=== PATIENT | female | born 1965 | race Caucasian/White ===

== ENCOUNTER 2020-05-23 11:45 | Emergency (ER) | payer BC, SELFPAY ==
[2020-05-23 11:51] VITALS: BP 152/95; PULSE 83; RESP 18; TEMP 36.9; O2SAT 94; BMI 28.5
--- NOTE | 2020-05-23 12:05 | CTR_ITS ---
PROCEDURE INFORMATION: Exam: CT Abdomen And Pelvis With Contrast Exam date and time: 05/23/2020 12:50 PM Age: 54 years old Clinical indication: Abdominal pain; Localized; Right lower quadrant (rlq); Prior surgery; Surgery date: 6+ months; Surgery type: Lymph node, ov cyst, appy; Patient HX: C/O rlq abd pain w HX of ibs and sbo TECHNIQUE: Imaging protocol: Computed tomography of the abdomen and pelvis with intravenous contrast. Radiation optimization: All CT scans at this facility use at least one of these dose optimization techniques: automated exposure control; mA and/or kV adjustment per patient size (includes targeted exams where dose is matched to clinical indication); or iterative reconstruction. Contrast material: OMNI 300; Contrast volume: 95 ml; Contrast route: INTRAVENOUS (IV); COMPARISON: CT abdomen pelvis w con* [id number] 02/27/2018 2:30 PM RADIATION DOSE METRICS: Total DLP (mGy-cm): 1060.08 FINDINGS: Liver: No mass. Gallbladder and bile ducts: Unremarkable. No ductal dilation. Pancreas: Normal. No ductal dilation. Spleen: Normal. No splenomegaly. Adrenals: Normal. No mass. Kidneys and ureters: Normal. No hydronephrosis. Stomach and bowel: No acute findings. No obstruction. No mucosal thickening. Appendix: Appendectomy. Intraperitoneal space: Unremarkable. No free air. No significant fluid collection. Vasculature: No abdominal aortic aneurysm. Lymph nodes: No significant adenopathy. Bladder: Unremarkable as visualized. Reproductive: Unremarkable as visualized. Bones/joints: No acute findings. Soft tissues: Unremarkable. CT/CT abdomen pelvis w con* [id number] IMPRESSION: No acute findings. Radiation Dose CTDIVOL = (mGy): DLP = 1060.08 (mGy-cm)
--- NOTE | 2020-05-23 12:19 | W.ED.ABDPA2 ---
HPI - Abdominal Pain General: Chief Complaint: Abdominal Pain Stated Complaint: ABD PAIN/SENT FROM [facility] Time Seen by Provider: 05/23/20 11:59 Source: patient Mode of arrival: ambulatory Limitations: no limitations History of Present Illness: HPI narrative: 54-year-old female whose had a small bowel obstruction the past states she has had some abdominal pain over the last day. She states she has had minimal bowel movements as well as concerned she may have another small bowel obstruction. States the pain is minimal in nature and rates it a 2 out of 10. Denies any fevers. MD elicited complaint: abdominal pain Onset (ago): day(s) Location: Diffuse Severity: mild Quality: cramping Radiation: none Exacerbating factors: nothing Relieving factors: nothing Associated Symptoms: Denies chills, dysuria and fever(s) Review of Systems Const: Denies: fever(s), chills, body aches or change in appetite Eyes: Denies: blurry vision or eye discomfort ENMT: Denies: throat pain or dental pain Card: Denies: chest pain Resp: Denies: dyspnea GI: Reports: abdominal pain : Denies: dysuria Musc: Denies: neck pain or back pain Skin/Breast: Denies: rash Neuro: Denies: headache(s) Psych: Denies: depression Isael/Lymph: Denies: easy bruising All/Imm: Denies: urticaria PFSH ED PFSH: Social History Smoking and tobacco status: never smoked Alcohol intake: never Substance/Drug Use: never Physical Exam Const: COMMON NORMALS: no acute distress, patient oriented x3 and healthy appearing HENMT: COMMON NORMALS: normocephalic and atraumatic HEAD & SCALP: normocephalic and atraumatic Eye: COMMON NORMALS: Equal, round and reactive pupils present and EOMs intact bilaterally PUPIL: Yes Equal, round and reactive pupils present Neck/C-Spine: COMMON NORMALS: full ROM and supple Chest: COMMONS NORMALS: normal inspection of the chest and normal palpation of entire chest wall Resp: COMMON NORMALS: normal respiratory effort, No retractions, No use of accessory muscles and clear to auscultation bilaterally AUSCULTATION: clear to auscultation bilaterally Cardio: COMMON NORMALS: regular rate, regular rhythm and No murmurs present (Cardio) RATE: regular rate RHYTHM: regular rhythm GI: COMMON NORMALS: Normal to inspection, nondistended, normoactive bowel sounds present, Soft to palpation, non-tender and no masses PALPATION: Yes Soft to palpation Extremity: COMMON NORMALS: normal to inspection and full ROM Neuro: COMMON NORMALS: patient oriented x3, moves all extremities and no focal motor deficits Psych: COMMON NORMALS: mental status grossly normal, Normal thought process present and cooperative THOUGHT PROCESS: Normal thought process present Skin: COMMON NORMALS: no rashes or lesions noted and no wounds GENERAL SKIN EXAM: no rashes or lesions noted Course Vital Signs: Vital signs: Vital Signs Temperature 98.5 F 05/23/20 11:51 Pulse Rate 83 05/23/20 11:51 Respiratory Rate 18 05/23/20 12:33 Blood Pressure 152/95 05/23/20 11:51 Pulse Oximetry 94 05/23/20 11:51 MDM - Abdominal Pain MDM Narrative: Medical decision making narrative: Patient presents here with abdominal pain since resolved. Likely bowel pain is CT scan and lab works all normal. Will place on [place] and she is to follow-up with primary care doctor in 3 to 5 days return if worsening. Lab Data: Labs: Lab Results 05/23/20 05/23/20 05/23/20 Range/Units 12:00 12:20 12:45 WBC 5.4 (4.0-10.0) 10^3/ uL RBC 5.03 (4.1-5.3) 10^6/u L Hgb 15.0 (11.5-15.3) g/dL Hct 47.0 (37.0-47.0) % MCV 93.4 (81-99) fL MCH 29.8 (28.0-34.0) pg MCHC 31.9 (30.0-36.0) g/dL RDW 11.9 L (12.1-15.1) % Plt Count 231 (130-400) 10^3/c mm MPV 9.5 (7.4-10.4) fL Neut % (Auto) 68.1 % Lymph % (Auto) 23.9 % [place] % (Auto) 6.5 % Eos % (Auto) 0.7 % Baso % (Auto) 0.6 % Neut # (Auto) 3.65 (1.8-7.7) 10^3/u L Lymph # (Auto) 1.3 (0.8-4.8) 10^3/u L [place] # (Auto) 0.4 (0.2-0.9) 10^3/u L Eos # (Auto) 0.0 (0.0-0.8) 10^3/u L Baso # (Auto) 0.0 (0.0-0.1) 10^3/u L Nucleated RBC % (a uto) 0 % Nucleated RBCs # 0.0 /100WBC Sodium 138 (136-145) mmol/L Potassium 4.0 (3.5-5.1) mmol/L Chloride 102 (98-107) mmol/L Carbon Dioxide 25 (22-29) mmol/L Anion Gap 15.0 (5-19) BUN 13 (6-20) mg/dL Creatinine 0.8 (0.5-0.9) mg/dL GFR Calculation 74.5 L (90-130) mL/min Glucose 108 (65-115) mg/dL Calculated Osmolal ity 283 L (285-295) mOsm/k g Calcium 10.0 (8.5-10.5) mg/dL Total Bilirubin 0.3 (0.15-1.2) mg/dL AST 18 (0-32) U/L ALT 14 (0-33) U/L Alkaline Phosphata se 68 (35-105) IU/L Total Protein 7.5 (6.6-8.7) g/dL Albumin 4.6 (3.5-5.2) g/dL Globulin 2.9 (1.3-4.6) g/dL Lipase 25 (13-60) U/L Urine Color Straw (Yellow) Urine Appearance Clear (CLEAR) Urine pH 6 (5-7) Ur Specific Gravit y 1.010 (1.005-1.030) Urine Protein Neg (Negative) Urine Glucose (UA) Norm (Normal) Urine Ketones Negative (Negative) Urine Blood Neg (Negative) Urine Nitrate Negative (Negative) Urine Bilirubin Neg (NEGATIVE) Urine Urobilinogen Norm (Negative) mg/dL Ur Leukocyte Roopa ase Negative (Negative) Imaging Data ^: CT Abd/Pel: Radiologist's impression: [facility] [address] [address] [address] Scan Report Signed Patient: Rehana Valentine Unit #: [id number] : 1965 Age/Sex: 54 / F ADM Date: 05/23/20 Loc: ER Room/Bed: Attending Dr: Ordering Provider/Ordering MD: Jalil Child MD Date of Service: 05/23/20 Procedure(s): CT abdomen pelvis w con* [id number] Accession Number(s): [id number] Report Number: [id number] PROCEDURE INFORMATION: Exam: CT Abdomen And Pelvis With Contrast Exam date and time: 05/23/2020 12:50 PM Age: 54 years old Clinical indication: Abdominal pain; Localized; Right lower quadrant (rlq); Prior surgery; Surgery date: 6+ months; Surgery type: Lymph node, ov cyst, appy; Patient HX: C/O rlq abd pain w HX of ibs and sbo TECHNIQUE: Imaging protocol: Computed tomography of the abdomen and pelvis with intravenous contrast. Radiation optimization: All CT scans at this facility use at least one of these dose optimization techniques: automated exposure control; mA and/or kV adjustment per patient size (includes targeted exams where dose is matched to clinical indication); or iterative reconstruction. Contrast material: OMNI 300; Contrast volume: 95 ml; Contrast route: INTRAVENOUS (IV); COMPARISON: CT abdomen pelvis w con* [id number] 02/27/2018 2:30 PM RADIATION DOSE METRICS: Total DLP (mGy-cm): 1060.08 FINDINGS: Liver: No mass. Gallbladder and bile ducts: Unremarkable. No ductal dilation. Pancreas: Normal. No ductal dilation. Spleen: Normal. No splenomegaly. Adrenals: Normal. No mass. Kidneys and ureters: Normal. No hydronephrosis. Stomach and bowel: No acute findings. No obstruction. No mucosal thickening. Appendix: Appendectomy. Intraperitoneal space: Unremarkable. No free air. No significant fluid collection. Vasculature: No abdominal aortic aneurysm. Lymph nodes: No significant adenopathy. Bladder: Unremarkable as visualized. Reproductive: Unremarkable as visualized. Bones/joints: No acute findings. Soft tissues: Unremarkable. CT/CT abdomen pelvis w con* [id number] IMPRESSION: No acute findings. Discharge Plan Discharge Patient Disposition: Home, Self-Care Clinical Impression: Abdominal pain Qualifiers: Abdominal location: generalized Qualified Code(s): R10.84 - Generalized abdominal pain Condition: Stable Prescriptions: New dicyclomine 20 mg tablet 20 mg PO TID PRN (Reason: abdominal pain) Qty: 20 RF: 0 No Action losartan 25 mg tablet 12.5 mg PO DAILY RF: 0 omeprazole 20 mg capsule,delayed release(DR/EC) 20 mg PO DAILY RF: 0 Linzess 145 mcg capsule 145 mcg PO DAILY RF: 0 Discharge Orders: Discharge Order (Routine); Ordered 05/23/20 Ordered By: Jalil Child Referrals: Caio Lee DO [Family Provider] - 1-3 days Discharge Diet: Advance as tolerated Discharge Activity: Resume usual activity Patient Instructions: Abdominal Pain (ED) Coding Level of Care Code ED Crm Specialist for Luis Armandog Fwd Exam Comprehensive
[2020-05-23 12:26] LABS: Basophils % 0.6 %; Eosinophils % 0.7 %; Lymphocytes # 1.3 10^3/uL (0.8-4.8); Lymphocytes % 23.9 %; Mean Corpuscular HGB Conc 31.9 g/dL (30.0-36.0); Mean Corpuscular Hemoglobin 29.8 pg (28.0-34.0); Mean Corpuscular Volume 93.4 fL (81-99); Mean Platelet Volume 9.5 fL (7.4-10.4); Monocytes # 0.4 10^3/uL (0.2-0.9); Monocytes % 6.5 %; Neutrophils # 3.65 10^3/uL (1.8-7.7); Neutrophils % 68.1 %; Nucleated Red Blood Cells % 0 %; Platelet Count 231 10^3/cmm (130-400); Red Blood Count 5.03 10^6/uL (4.1-5.3); Red Cell Distribution Width 11.9 % (12.1-15.1); White Blood Count 5.4 10^3/uL (4.0-10.0)
[2020-05-23 12:33] VITALS: RESP 18
[2020-05-23 12:38] LABS: Add Urine Microscopic? NO; Urine Appearance Clear (CLEAR); Urine Color Straw (Yellow)
[2020-05-23 12:39] LABS: Bilirubin Urine Neg (NEGATIVE); Blood Urine Neg (Negative); Glucose Urine UA Norm (Normal); Ketones Urine Negative (Negative); Leukocyte Esterase Urine Negative (Negative); Nitrate Urine Negative (Negative); Protein Urine Neg (Negative); Urobilinogen Urine Norm (Negative); pH Urine 6 (5-7)
[2020-05-23 13:07] LABS: Alanine Aminotransferase 14 U/L (0-33); Albumin Level 4.6 g/dL (3.5-5.2); Alkaline Phosphatase 68 IU/L (35-105); Aspartate Amino Transferase 18 U/L (0-32); Blood Urea Nitrogen 13 mg/dL (6-20); Carbon Dioxide 25 mmol/L (22-29); Chloride 102 mmol/L (98-107); Globulin 2.9 g/dL (1.3-4.6); Glomerular Filtration Rate 74.5 mL/min (90-130); Glucose 108 mg/dL (65-115); Lipase 25 U/L (13-60); Osmolality Calculated 283 mOsm/kg (285-295); Sodium 138 mmol/L (136-145); Total Bilirubin 0.3 mg/dL (0.15-1.2); Total Protein 7.5 g/dL (6.6-8.7)
[2020-05-23] MEDS: iohexol 300 mg/mL 100 mL Btl IV (13:07)
[2020-05-23 13:33] VITALS: BP 158/94; PULSE 93; RESP 18; O2SAT 95
[2020-05-23 13:53] VITALS: BP 158/94; PULSE 93; RESP 18; TEMP 36.9; O2SAT 95
== END 2020-05-23 13:53 | disposition home or self-care (01) ==
PROVIDERS: Emergency Provider Emergency Medicine; Family Provider Internal Medicine
DX: R10.84 Generalized abdominal pain (principal)
CPT/HCPCS: 12345; 36415; 74177; 80053; 81003; 83690; 85025; 99282; 99283; Q9967

== ENCOUNTER 2020-10-06 09:03 | Outpatient (CLI) | payer BC, SELFPAY ==
--- NOTE | 2020-10-06 09:13 | CT_ITS ---
WS: [id number] CT NECK TECHNIQUE: Contrast-enhanced CT of the neck with coronal and sagittal reformatted images. CLINICAL INFORMATION: NECK SWELLING COMPARISON: Ultrasound thyroid September 15, 2020 DLP: 2493.[address] scans at [facility] use at least one of these dose optimization techniques: automat ed exposure control; mA and/or kV adjustment per patient size (includes targeted exams where dose is matched to clinical indication); or iterative reconstruction. FINDINGS: Parotid glands are normal. Normal submandibular glands. No cervical lymphadenopathy. Normal posterior nasopharynx. Normal parapharyngeal fat. Normal palatine tonsils. Tongue base is normal. No evidence of supraglottic or glottic mass. Normal vallecula and piriform sinuses. Subglottic airway is normal. Tiny low-attenuation nodules in the right thyroid lobe largest measuring 4 mm. Mastoid air cells are well aerated. Chronic appearing opacification the right maxillary sinus. Partia lly visualized intracranial contents are normal. CT/CT neck w con* [id number] IMPRESSION: 1. Normal salivary glands. 2. No evidence of supraglottic or glottic mass. 3. No cervical lymphadenopathy. 4. Chronic appearing opacification right maxillary sinus. 5. A few tiny low-attenuation nodules in the right thyroid lobe the largest me asuring 4 mm. 6. No other significant findings.
[2020-10-06] MEDS: iohexol 300 mg/mL 100 mL Btl IV (09:24)
== END 2020-10-06 09:04 | disposition home or self-care (01) ==
PROVIDERS: PCP Internal Medicine; Visit Provider Internal Medicine
DX: R22.1 Localized swelling, mass and lump, neck (principal)
CPT/HCPCS: 70491; Q9967

== ENCOUNTER 2022-04-04 20:00 | Outpatient (CLI) | payer OTHER, SELFPAY | END 2022-04-04 20:01 | disposition home or self-care (01) | LOC: SLEEP 04-05 05:56 | PROVIDERS: PCP Internal Medicine; Visit Provider Internal Medicine | DX: G47.33 Obstructive sleep apnea (adult) (pediatric) (principal) | CPT/HCPCS: 95810 ==

== ENCOUNTER 2022-06-16 13:22 | Outpatient (CLI) | payer OTHER, SELFPAY ==
--- NOTE | 2022-06-16 13:29 | CT_ITS ---
WS: [id number] CT ABDOMEN AND PELVIS WITH CONTRAST HISTORY: L FLANK PAIN/DYSURIA Bilateral lower quadrant pain for 3 weeks. TECHNIQUE: Imaging performed of the abdomen and pelvis with IV contrast. Single phase imaging of the abdomen. Coronal and sagittal reformats are submitted. All CT scans at [facility] use at [address] one of these dose optimization techniques: automated exposure control; mA and/or kV adjustment per patient size (includes targeted exams where dose is matched to clinical indication); or iterative re construction. IV CONTRAST: Omnipaque 350; 95 mL IV. Oral contrast: No DLP: 1087.48 mGy.cm COMPARISON: 05/23/2020 Lower thorax: Lung bases are clear. Heart is normal size. No hiatal hernia. Liver/biliary system: Too small to characterize hypodensity RIGHT lobe of the liver. Otherwise liver is normal. Normal portal vein. Gallbladder: Normal. No gallstones or wall thickening. No pericholecystic fluid. Pancreas: Normal size pancreas and pancreatic duct. No adjacent inflammation. Spleen: Normal size spleen. No mass or infarct. Adrenal glands: Normal. Right kidney: Normal size kidney. Simple cyst upper pole measures 4.5 x 5.4 cm. No obstruction no per inephric stranding. Left kidney: Normal size kidney. Cortical cyst measures 1.0 cm in the lower kidney. No obstruction. Aorta: Mild atherosclerosis with no aneurysm. Lymphadenopathy: None. Free fluid: None. GI tract: Stomach is nondistended. No small bowel obstruction. There is mild luminal narrowing of the terminal ileum with fatty proliferation. Additional mild luminal narrowing in the central pelvis is loop of bowel is probably in the ileum. No strictures or obstruction. Mildly fluid distended loop of small bowel in the LEFT abdomen. Prior appendectomy. Abdominal wall: Unremarkable abdominal wall. No hernia. Pelvis: Well-distended urinary bladder. No free fluid or adenopathy. Bones: Mild degenerative changes in the lumbar spine. CT/CT abdomen pelvis w con* [id number] IMPRESSION: 1. No renal obstruction or perinephric stranding. 2. No free fluid. 3. Mild fatty proliferation narrowing of several loops of distal small bowel t owards the terminal ileum. No adjacent inflammation. Consider inflammatory cordell l disease such as Crohn's as a possible etiology. There is no ascites or high-g rade obstruction at this time.
[2022-06-16] MEDS: iohexol 350 mg/mL 100 mL Btl IV (14:06)
== END 2022-06-16 13:23 | disposition home or self-care (01) ==
LOC: RAD 13:23
PROVIDERS: PCP Internal Medicine; Visit Provider Internal Medicine
DX: R10.9 Unspecified abdominal pain (principal); R30.0 Dysuria
CPT/HCPCS: 74177

== ENCOUNTER 2022-10-09 02:44 | Emergency (ER) | payer OTHER, SELFPAY ==
[2022-10-09 02:48] VITALS: BP 147/92; PULSE 92; RESP 18; TEMP 36.5; O2SAT 94; BMI 27.3
[2022-10-09 03:48] VITALS: BP 145/86; PULSE 72; RESP 16; TEMP 36.6; O2SAT 96
--- NOTE | 2022-10-09 03:54 | USR_ITS ---
PROCEDURE INFORMATION: Exam: US Abdomen, Limited; Right Upper Quadrant Exam date and time: 10/09/2022 4:08 AM Age: 57 years old Clinical indication: Abdominal pain; Generalized; Additional info: Abd pain TECHNIQUE: Imaging protocol: Real time ultrasound of the abdomen with image documentation. Limited exam focused on the right upper quadrant. COMPARISON: CT abdomen pelvis w con* [id number] 06/16/2022 2:01 PM FINDINGS: Liver: Unremarkable liver, no focal abnormality. Gallbladder: No cholelithiasis. No gallbladder wall thickening or pericholecystic fluid. The gallbladder does not appear abnormally distended at this time. Biliary ducts: No biliary dilation, common duct measures 4.6 mm. Pancreas: Visible pancreas unremarkable. Right kidney: Images of the right kidney show no hydronephrosis. 4.9 cm cyst in the upper right kidney. US/US gall bladder [id number] IMPRESSION: 1. No cholelithiasis or biliary tree dilation. 2. Other details/findings discussed above.
--- NOTE | 2022-10-09 03:55 | W.ED.ABDPA2 ---
HPI - Abdominal Pain General: Chief Complaint: Abdominal Pain Stated Complaint: abdomen pain Time Seen by Provider: 10/09/22 02:54 Source: patient Mode of arrival: ambulatory Limitations: no limitations History of Present Illness: 57-year-old female states that she has been having abdominal pain for weeks. States she does have a history of IBS she had a colonoscopy 2 weeks ago that was negative. She states that the last 2 nights she has been having a burning sensation in her epigastric region. States tonight the pain was a 6 out of 10 she had nausea denies vomiting denies any fevers denies any worsening proving factors. Associated Symptoms: Reports nausea; Denies chills, dysuria and fever(s) Review of Systems Const: Denies: fever(s), chills, body aches or change in appetite Eyes: Denies: blurry vision or eye discomfort ENMT: Denies: throat pain or dental pain Card: Denies: chest pain Resp: Denies: dyspnea GI: Reports: abdominal pain and nausea : Denies: dysuria Musc: Denies: neck pain or back pain Skin/Breast: Denies: rash Neuro: Denies: headache(s) Psych: Denies: depression Isael/Lymph: Denies: easy bruising All/Imm: Denies: urticaria PFSH ED PFSH: Medical History History of nonmelanoma skin cancer HTN (hypertension) IBS (irritable bowel syndrome) Social History Smoking and tobacco status: never smoked Alcohol intake: never History of recent travel: No Physical Exam Const: COMMON NORMALS: no acute distress, patient oriented x3 and healthy appearing HENMT: COMMON NORMALS: normocephalic and atraumatic HEAD & SCALP: normocephalic and atraumatic Eye: COMMON NORMALS: Equal, round and reactive pupils present and EOMs intact bilaterally PUPIL: Yes Equal, round and reactive pupils present Neck/C-Spine: COMMON NORMALS: full ROM and supple Chest: COMMONS NORMALS: normal inspection of the chest and normal palpation of entire chest wall Resp: COMMON NORMALS: normal respiratory effort, No retractions, No use of accessory muscles and clear to auscultation bilaterally AUSCULTATION: clear to auscultation bilaterally Cardio: COMMON NORMALS: regular rate, regular rhythm and No murmurs present (Cardio) RATE: regular rate RHYTHM: regular rhythm GI: COMMON NORMALS: Normal to inspection, nondistended, normoactive bowel sounds present, Soft to palpation, non-tender and no masses PALPATION: Yes Soft to palpation Extremity: COMMON NORMALS: normal to inspection and full ROM Neuro: COMMON NORMALS: patient oriented x3, moves all extremities and no focal motor deficits Psych: COMMON NORMALS: mental status grossly normal, Normal thought process present and cooperative THOUGHT PROCESS: Normal thought process present Skin: COMMON NORMALS: no rashes or lesions noted and no wounds GENERAL SKIN EXAM: no rashes or lesions noted Course Vital Signs: Vital signs: Vital Signs Temperature 97.8 F 10/09/22 03:48 Pulse Rate 65 10/09/22 04:00 Respiratory Rate 16 10/09/22 04:00 Blood Pressure 145/82 10/09/22 04:00 Pulse Oximetry 96 10/09/22 04:00 Oxygen Delivery Me thod 10/09/22 04:00 MDM - Abdominal Pain Medical Decision Making Patient presents here with abdominal pain likely gastritis her pain was resolved here with a GI cocktail ultrasound is normal blood work is all normal we will have her stop taking omeprazole and start her on Protonix she is to follow-up with her PCP and 2 to 4 days return if worsening. Lab Data 10/09/22 04:05 10/09/22 04:05 Labs/Radiology: Radiology Impressions Gallbladder Ultrasound 10/09/22 03:54 IMPRESSION: 1. No cholelithiasis or biliary tree dilation. 2. Other details/findings discussed above. Laboratory Results WBC 7.1 10^3/uL (4.0-10.0) 10/09/22 04:05 RBC 4.61 10^6/uL (4.1-5.3) 10/09/22 04:05 Hgb 14.0 g/dL (11.5-15.3) 10/09/22 04:05 Hct 42.1 % (37.0-47.0) 10/09/22 04:05 MCV 91.3 fl (81-99) 10/09/22 04:05 MCH 30.4 pg (28.0-34.0) 10/09/22 04:05 MCHC 33.3 g/dL (30.0-36.0) 10/09/22 04:05 RDW 12.3 % (12.1-15.1) 10/09/22 04:05 Plt Count 238 10^3/cmm (130-400) 10/09/22 04:05 MPV 8.9 fL (7.4-10.4) 10/09/22 04:05 Neut % (Auto) 70.4 % 10/09/22 04:05 Lymph % (Auto) 23.0 % 10/09/22 04:05 [place] % (Auto) 4.7 % 10/09/22 04:05 Eos % (Auto) 0.9 % 10/09/22 04:05 Baso % (Auto) 0.7 % 10/09/22 04:05 Neut # (Auto) 4.97 10^3/uL (1.8-7.7) 10/09/22 04:05 Lymph # (Auto) 1.6 10^3/uL (0.8-4.8) 10/09/22 04:05 [place] # (Auto) 0.3 10^3/uL (0.2-0.9) 10/09/22 04:05 Eos # (Auto) 0.1 10^3/uL (0.0-0.8) 10/09/22 04:05 Baso # (Auto) 0.1 10^3/uL (0.0-0.1) 10/09/22 04:05 Nucleated RBC % (auto) 0 % 10/09/22 04:05 Nucleated RBCs # 0.0 /100WBC 10/09/22 04:05 Sodium 137 mmol/L (136-145) 10/09/22 04:05 Potassium 3.4 mmol/L (3.5-5.1) L 10/09/22 04:05 Chloride 100 mmol/L (98-107) 10/09/22 04:05 Carbon Dioxide 26 mmol/L (22-29) 10/09/22 04:05 Anion Gap 14.4 (5-19) 10/09/22 04:05 BUN 9 mg/dL (6-20) 10/09/22 04:05 Creatinine 0.9 mg/dL (0.5-0.9) 10/09/22 04:05 GFR Calculation 64.3 mL/min (90-130) L 10/09/22 04:05 Glucose 102 mg/dL (65-115) 10/09/22 04:05 Calculated Osmolality 283 mOsm/kg (285-295) L 10/09/22 04:05 Calcium 10.0 mg/dL (8.5-10.5) 10/09/22 04:05 Total Bilirubin 0.4 mg/dL (0.15-1.2) 10/09/22 04:05 AST 19 U/L (0-32) 10/09/22 04:05 ALT 16 U/L (0-33) 10/09/22 04:05 Alkaline Phosphatase 67 U/L (35-105) 10/09/22 04:05 Total Protein 7.5 g/dL (6.6-8.7) 10/09/22 04:05 Albumin 4.6 g/dL (3.5-5.2) 10/09/22 04:05 Globulin 2.9 g/dL (1.3-4.6) 10/09/22 04:05 Lipase 29 U/L (13-60) 10/09/22 04:05 Urine Color Yellow (Yellow) 10/09/22 03:45 Urine Appearance Clear (CLEAR) 10/09/22 03:45 Urine pH 6 (5-7) 10/09/22 03:45 Ur Specific [place] 1.005 (1.005-1.030) 10/09/22 03:45 Urine Protein Neg (Negative) 10/09/22 03:45 Urine Glucose (UA) Norm (Normal) 10/09/22 03:45 Urine Ketones Negative (Negative) 10/09/22 03:45 Urine Blood Neg (Negative) 10/09/22 03:45 Urine Nitrate Negative (Negative) 10/09/22 03:45 Urine Bilirubin Neg (Negative) 10/09/22 03:45 Urine Urobilinogen Neg mg/dL (Negative) 10/09/22 03:45 Ur Leukocyte Esterase Negative (Negative) 10/09/22 03:45 Discharge Plan Discharge Patient Disposition: Home Clinical Impression: Abdominal pain Condition: Stable Prescriptions: New Protonix 40 mg tablet,delayed release (DR/EC) 40 mg PO DAILY Qty: 60 0RF No Action valacyclovir 1 gram tablet 1,000 mg PO DAILY ketoconazole 2 % cream 1 applic topical DAILY losartan 25 mg tablet 12.5 mg PO DAILY omeprazole 20 mg capsule,delayed release(DR/EC) 20 mg PO DAILY Rx Instructions: pt states she takes this prn. Linzess 145 mcg capsule 145 mcg PO DAILY Rx Instructions: take 30 minutes before breakfast. Discharge Orders: Discharge ED (Routine); Ordered 10/09/22 Ordered By: Jalil Child Referrals: Caio Lee DO [Primary Care Provider] - 1-3 days Discharge Diet: Advance as tolerated Discharge Activity: Resume usual activity Patient Instructions: Gastritis (ED), Abdominal Pain (ED) Coding Level of Care Code ED Purchasing Director for Luis Armandog Fwd Exam Comprehensive
[2022-10-09 04:00] VITALS: BP 145/82; PULSE 65; RESP 16; O2SAT 96
[2022-10-09 04:15] LABS: Basophils # 0.1 10^3/uL (0.0-0.1); Basophils % 0.7 %; Eosinophils # 0.1 10^3/uL (0.0-0.8); Eosinophils % 0.9 %; Hematocrit 42.1 % (37.0-47.0); Lymphocytes # 1.6 10^3/uL (0.8-4.8); Mean Corpuscular HGB Conc 33.3 g/dL (30.0-36.0); Mean Corpuscular Hemoglobin 30.4 pg (28.0-34.0); Mean Corpuscular Volume 91.3 fl (81-99); Mean Platelet Volume 8.9 fL (7.4-10.4); Monocytes # 0.3 10^3/uL (0.2-0.9); Monocytes % 4.7 %; Neutrophils # 4.97 10^3/uL (1.8-7.7); Neutrophils % 70.4 %; Nucleated Red Blood Cells % 0 %; Platelet Count 238 10^3/cmm (130-400); Red Blood Count 4.61 10^6/uL (4.1-5.3); Red Cell Distribution Width 12.3 % (12.1-15.1); White Blood Count 7.1 10^3/uL (4.0-10.0)
[2022-10-09 04:19] LABS: Add Urine Microscopic? NO; Charge for UA Resulting for Rev
[2022-10-09 04:28] LABS: Bilirubin Urine Neg (Negative); Blood Urine Neg (Negative); Glucose Urine UA Norm (Normal); Ketones Urine Negative (Negative); Nitrate Urine Negative (Negative); Protein Urine Neg (Negative); Specific Gravity, Urine 1.005 (1.005-1.030); Urine Appearance Clear (CLEAR); Urine Color Yellow (Yellow); pH Urine 6 (5-7)
[2022-10-09 04:29] LABS: Leukocyte Esterase Urine Negative (Negative); Urobilinogen Urine Neg (Negative)
[2022-10-09] MEDS: lidocaine 2% viscous 15 ML, aluminum-mag hydrox-simethicon 30 ML, sucralfate oral liq 1 GM PO (04:32)
[2022-10-09] MEDS: metoclopramide 5 mg/mL SDV 2 mL 10 MG IVP (04:35)
[2022-10-09] MEDS: diphenhydrAMINE 50 mg/mL SDV 1mL IVP (04:35)
[2022-10-09 04:36] LABS: Alanine Aminotransferase 16 U/L (0-33); Albumin Level 4.6 g/dL (3.5-5.2); Alkaline Phosphatase 67 U/L (35-105); Anion Gap 14.4 (5-19); Aspartate Amino Transferase 19 U/L (0-32); Blood Urea Nitrogen 9 mg/dL (6-20); Carbon Dioxide 26 mmol/L (22-29); Chloride 100 mmol/L (98-107); Globulin 2.9 g/dL (1.3-4.6); Glomerular Filtration Rate 64.3 mL/min (90-130); Glucose 102 mg/dL (65-115); Lipase 29 U/L (13-60); Osmolality Calculated 283 mOsm/kg (285-295); Potassium 3.4 mmol/L (3.5-5.1); Sodium 137 mmol/L (136-145); Total Bilirubin 0.4 mg/dL (0.15-1.2); Total Protein 7.5 g/dL (6.6-8.7)
== END 2022-10-09 05:44 | disposition home or self-care (01) ==
PROVIDERS: Emergency Provider Emergency Medicine; PCP Internal Medicine
DX: R10.9 Unspecified abdominal pain (principal); I10 Essential (primary) hypertension
CPT/HCPCS: 76705; 80053; 81003; 83690; 85025; 96374; 96375; 99285; J1200; J2765

== ENCOUNTER 2023-06-28 13:35 | Outpatient (CLI) | payer OTHER, SELFPAY ==
--- NOTE | 2023-06-28 13:55 | MM_ITS ---
WS: [id number] Bilateral screening 3D tomosynthesis digital mammogram, 06/28/2023 Clinical Data: SCREENING Comparison: 10/10/2018, 08/29/2017, 08/10/2017, 06/30/2016, 12/15/2015, 11/26/2015, 05/13/2015, 11/03/2014, 10/22/2014. Findings: The breast parenchymal pattern shows fibroglandular tissue. No spiculated masses or clustered calcifi cations are seen. There are no secondary signs of carcinoma. Impression: 1. Negative bilateral mammogram unchanged. 2. Recommend annual screening mammograms. MM/[place] [id number] BIRADS: 1-Negative FOLLOW UP: 1 Year Follow-up The CAD finished cloth checker was used.
== END 2023-06-28 13:36 | disposition home or self-care (01) ==
LOC: RAD 13:38 → MOBLMAM 14:07
PROVIDERS: PCP Internal Medicine; Visit Provider Internal Medicine
DX: Z12.31 Encounter for screening mammogram for malignant neoplasm of breast (principal)
CPT/HCPCS: 77063; 77067

== ENCOUNTER 2023-10-19 14:59 | Outpatient (CLI) | payer OTHER, SELFPAY ==
--- NOTE | 2023-10-19 15:09 | MR_ITS ---
WS: [id number] MRI RIGHT SHOULDER NONCONTRAST TECHNIQUE: Sagittal T2, coronal T1, T2 and proton density imaging. Axial gradient PDE imaging. CLINICAL INFORMATION: R SHOULDER DERANGEMENT COMPARISON: None. FINDINGS: Moderate degenerative arthritis AC joint. Edema and synovial thickening at the AC joint with lobulate d ganglion cyst deep to the AC joint. Slight subacromial spurring. Impingement of distal supraspinatu s with tendinopathy. Mild tendinopathy infraspinatus. Small amount of subdeltoid fluid. Intra-articul ar biceps tendon appears intact. Glenoid labrum appears grossly intact. Mild subchondral cystic rea e along the greater tuberosity. Normal teres minor. Small subcoracoid effusion. Normal biceps tendon in the bicipital groove. IMPRESSION: 1. Moderate degenerative arthritis AC joint with fluid and edema. Subacromial ganglion cyst appears continuous with the AC joint measuring 11 mm in maximum dimension. 2. Small amount of subacromial and subdeltoid fluid. 3. Tendinopathy distal supraspinatus and infraspinatus. No high-grade rotator cuff tears. 4. Normal biceps tendon in the bicipital groove. 5. Moderate degenerative narrowing of the glenohumeral articulation. 6. No other acute findings.
== END 2023-10-19 15:00 | disposition home or self-care (01) ==
LOC: RAD 15:05
PROVIDERS: PCP Internal Medicine; Visit Provider Internal Medicine
DX: M24.811 Other specific joint derangements of right shoulder, not elsewhere classified (principal); M19.011 Primary osteoarthritis, right shoulder; M67.411 Ganglion, right shoulder
CPT/HCPCS: 73221

== ENCOUNTER 2023-11-07 12:13 | Outpatient (RCR) | payer OTHER, SELFPAY | END 2023-11-07 23:59 | disposition home or self-care (01) | LOC: SPT 12:13 | PROVIDERS: PCP Internal Medicine; Visit Provider Student in an Organized Health Care Education/Training Program | DX: M75.41 Impingement syndrome of right shoulder (principal) | CPT/HCPCS: 97161 ==

== ENCOUNTER 2024-01-17 08:58 | Day surgery (SDC) | payer OTHER, SELFPAY ==
[2024-01-17] VITALS (10 sets, daily range): BP systolic 117–153; BP diastolic 61–102; PULSE 68–89; RESP 10–17; TEMP 36.1–36.7; O2SAT 92–99; BMI 28.8
[2024-01-17] MEDS: sodium chloride 0.9% 1,000 ML 30 ML IV (09:32)
[2024-01-17] MEDS: acetaminophen 1,000 MG/100 ML PIGGYBACK 400 MG IV (09:33)
[2024-01-17] MEDS: ketorolac 30 mg/mL INJ IVP (09:35)
[2024-01-17] MEDS: scopolamine 1.5 Patch 1 PATCH TRANSDERMA (09:35)
--- NOTE | 2024-01-17 09:40 | ANES.PREANE2 ---
Pre-Anesthetic Assessment Height/Weight: Height 1.73 m Weight 86.183 kg Temp Pulse Resp BP Pulse Ox O2 Del Method 98.1 F 75 17 153/102 97 Room Air 01/17/24 09:14 01/17/24 09:14 01/17/24 09:14 01/17/24 09:14 01/17/24 09:14 01/17/24 09:18 Operation Date: 01/17/24 10:20 Proposed Procedures p Shoulder Arthroscopy(Right) - William Kimble, DO s AC Joint Resection(Right) - William Kimble, DO s Subacromial Decompression(Right) - William Kimble, DO s Rotator Cuff Repair - Arthroscopy/possible(Right) - William Sara, DO s Excision Of Ganglion Cyst(Right) - William Kimble, DO Last intake: Intake Last Liquid Date 01/16/24 Last Liquid Time 21:00 Last Solid Date 01/16/24 Last Solid Time 15:00 Social No alcohol and No tobacco Exam alert, oriented x 3, clear to auscultation bilaterally and regular rate & rhythm Airway Submandibular: within normal limits Cervical ROM: within normal limits Mallampati: Class I CV/HEM Hypertension Anesthetic Plan ASA status: 2 Anesthesia: General and Regional (specify below) Other: interscalene block for post op pain Risk of > 500 ml blood loss (7ml/kg in children): No Medications/Allergies Home Medications Medication Instructions Recorded Confirmed Last Taken Type losartan 25 mg tablet 12.5 mg PO DAILY 05/23/20 01/16/24 01/16/24 History ketoconazole 2 % topical cream 1 applic topical DAILY 06/15/22 01/17/24 01/15/24 History valacyclovir 1 gram tablet 1,000 mg PO DAILY 06/15/22 01/16/24 Unknown History pantoprazole 40 mg tablet,delayed 40 mg PO DAILY #60 tabs 10/09/22 01/17/24 01/17/24 Rx release (Protonix) plecanatide 3 mg tablet (Trulance) 3 mg PO DAILY 12/14/23 01/16/24 01/16/24 History Allergies Allergy/AdvReac Type Severity Reaction Status Date / Time No Known Allergies Allergy Verified 01/17/24 09:11 [facility] Anesthesia Medical History History of nonmelanoma skin cancer HTN (hypertension) IBS (irritable bowel syndrome) Social History Smoking and tobacco/nicotine status: never used tobacco/nicotine Alcohol intake: never Substance/Drug Use: never Data Anesthesia 01/17/24 09:35 Cardiac Studies: No Data to Display
[2024-01-17 09:58] LABS: Blood Urea Nitrogen 14 mg/dL (6-20); Calcium 9.2 mg/dL (8.5-10.5); Carbon Dioxide 22 mmol/L (22-29); Chloride 105 mmol/L (98-107); Creatinine Clr Calc Pharmacy 87.0345; Glomerular Filtration Rate 73.4 mL/min (90-130); Glucose 94 mg/dL (65-115); Osmolality Calculated 288 mOsm/kg (285-295); Sodium 139 mmol/L (136-145)
[2024-01-17 09:59] LABS: Anion Gap 16.5 (5-19); Potassium 4.5 mmol/L (3.5-5.1)
--- NOTE | 2024-01-17 10:10 | P.HP_ITS ---
Same Day Surgery H&P Indication for Procedure/HPI DATE OF PROCEDURE: January 17, 2024 CHIEF COMPLAINT/INDICATIONFOR SURGICAL PROCEDURE: Right shoulder rotator cuff impingement, AC joint arthritis, ganglion cyst PREOP DIAGNOSIS: Right shoulder rotator cuff impingement, AC joint arthritis, ganglion cyst PLANNED PROCEDURE: Operation Date: 01/17/24 10:20 Proposed Procedures p Shoulder Arthroscopy(Right) - William Ruiz, DO s AC Joint Resection(Right) - William Cadetatt, DO s Subacromial Decompression(Right) - William Sara, DO s Rotator Cuff Repair - Arthroscopy/possible(Right) - William Sara, DO s Excision Of Ganglion Cyst(Right) - William Cadetatt, DO Medications/Allergies* Home Medications Medication Instructions Recorded Confirmed Type losartan 25 mg tablet 12.5 mg PO DAILY 05/23/20 01/16/24 History ketoconazole 2 % topical cream 1 applic topical DAILY 06/15/22 01/17/24 History valacyclovir 1 gram tablet 1,000 mg PO DAILY 06/15/22 01/16/24 History plecanatide 3 mg tablet (Trulance) 3 mg PO DAILY 12/14/23 01/16/24 History Allergies/Adverse Reactions Allergy/AdvReac Type Severity Reaction Status Date / Time No Known Allergies Allergy Verified 01/17/24 09:11 Current Medications: 3 Generic Name Dose Route Start Last Admin Trade Name Freq PRN Reason Stop Dose Admin Sodium Chloride 1,000 mls @ 30 mls/hr 01/17/24 07:15 01/17/24 09:32 Sodium Chloride 0.9% IV 01/18/24 07:14 30 mls/hr .Q24H JUDY Administration Pertinent History/Comorbid Conditions* Medical History (Updated 12/14/23 @ 13:59 by CHRIS Ingram) History of nonmelanoma skin cancer HTN (hypertension) IBS (irritable bowel syndrome) Social History Smoking and tobacco/nicotine status: never used tobacco/nicotine Alcohol intake: never Substance/Drug Use: never Pertinent Exam Findings alert, oriented x 3, operative site marked and procedure specific exam findings Refer to detailed orthopedic examination on 12/14/2023 performed in the orthopedic office Recommendations Surgery/Procedure today Other Plans: Plan to proceed with the OR today for right shoulder diagnostic and surgical arthroscopy with AC joint resection, subacromial decompression, ganglion cyst excision as well as possible rotator cuff repair. All ins and outs of procedure have been in detail with patient she understand the risk benefits complication alternatives of surgery risk of surgery include not limited to make a better make it worse, Percy deformity, failure of repair, shoulder decreased range of motion, persistent pain. Understanding risk of surgery elects to proceed all questions answered at this time. Coding Level of Care Code Acute Code for Chg Fwd
--- NOTE | 2024-01-17 10:36 | ANES.PROC ---
Anesthesia Procedures Procedure/Date: 01/17/24 Nerve Block ^: Nerve Block 1: Consent: requested by attending/covering physician and from patient Nerve block location: interscalene Nerve block position: semi sitting Anesthetic Used: ropivicaine 0.5% (30ml) Amount of anesthesia used (mL): 30 Ultrasound used to: recognize landmarks and visualize and ID brachial plexus Patient Tolerated Procedure: well and no complications Complications: none
[2024-01-17] MEDS: ceFAZolin 2,000 MG in sodium chloride 0.9% (plus) 50 ML 100 MG IV (13:24)
--- NOTE | 2024-01-17 16:21 | P.BOP_ITS ---
Date of Procedure: [January 17, 2024] Surgeon: [Dr. Ruiz DO] Hotel Assistant Manager(s): [Jerald Ruiz PA-C] Procedure(s) performed: [Right shoulder diagnostic and surgical arthroscopy Labral debridement Subscapularis tendon repair Subacromial decompression AC joint resection Medium rotator cuff repair] Findings of the procedure(s): [Right shoulder AC joint arthritis, labral tear, subscapularis tendon tear, rotator cuff tear and subacromial bursitis] Estimated blood loss: [20 ml] Specimen(s) removed: [n/a] Post-operative diagnosis: [Right shoulder AC joint arthritis, labral tear, subscapularis tendon tear, rotator cuff tear and subacromial bursitis]
--- NOTE | 2024-01-17 16:25 | PM.PACU ---
PACU note Narrative: Patient is a 58-year-old female just underwent a right shoulder arthroscopy with rotator cuff repair. Patient transferred to PACU in stable condition. Pain is well controlled. shoulder Dressing on , dry and in place. Patient's operative arm is in a shoulder immobilizer. Patient is awake and alert and able to respond to my questions accordingly. Patient's fingers are warm with good perfusion. Normal cap refill under 2 seconds. Unable to assess further range of motion in arm due to sling. Unable to assess sensation due to residual localized anesthetic. Exam: awake Disposition: discharged
--- NOTE | 2024-01-17 17:31 | ANE.PACU2 ---
Inpatient post-anesthesia follow up: Vital signs: Temperature 97.0 F Pulse Rate 68 Respiratory Rate 17 Blood Pressure 137/85 Pulse Oximetry 92 Oxygen Delivery Me thod Room Air Oxygen Flow Rate 6 Fraction of Inspir ed Oxygen Hydration adequate: Yes Nausea and vomiting: No Mental status: Baseline Additional Comments: No apparent anesthetic complications noted
--- NOTE | 2024-01-17 17:46 | PM.OP ---
Operative Report Date of procedure: January 17, 2024 Surgeon: William Ruiz DO [employer] Supervisor: Jerald Ruiz PA-C: PA was necessary for assistance in this case with shoulder positioning to execute the procedure, assistance with instrumentation, as well as implant fixation when necessary, assist with wound closure and dressing application. Procedure: Preoperative diagnosis: Right shoulder rotator cuff impingement, AC joint arthritis, ganglion cyst Post-op diagnosis: Right shoulder labral tearing Right shoulder subscapularis tendon tear Right shoulder supraspinatus tendon tear Right shoulder AC joint arthritis Right shoulder subacromial bursitis/impingement Procedure done: Right shoulder diagnostic and surgical arthroscopy with arthroscopic rotator?cuff?repair (medium) Right shoulder diagnostic and surgical arthroscopy subscapularis tendon repair Right shoulder diagnostic and surgical arthroscopy labral debridement Right shoulder diagnostic and surgical arthroscopy acromioclavicular joint resection Right shoulder diagnostic and surgical arthroscopy subacromial decompression (acromioplasty and bursectomy) including ganglion excision Surgeon: William Ruiz DO Estimated blood loss: 20mL IV fluids: See anesthesia record Implants: Arthrex 4.75 swivel lock x3 Arthrex scorpion and suture tape Complications: None Condition: stable Disposition: same day Brief History: Patient been seen and worked up in the outpatient setting for right shoulder pain.? Pt had an MRI which showed findings below.? Patient's failed conservative treatment and has weakness.? We talked about treatment options far as nonoperative and operative intervention..? We talked about risk benefits complication alternatives surgical nonsurgical treatment options.? Understanding risk of surgery pt agrees to proceed with surgical intervention.? All questions have been answered at this time.? Patient elects proceed with surgery and consent obtained in office. IMPRESSION: 1. Moderate degenerative arthritis AC joint with fluid and edema. Subacromial ganglion cyst appears continuous with the AC joint measuring 11 mm in maximum dimension. 2. Small amount of subacromial and subdeltoid fluid. 3. Tendinopathy distal supraspinatus and infraspinatus. No high-grade rotator cuff tears. 4. Normal biceps tendon in the bicipital groove. 5. Moderate degenerative narrowing of the glenohumeral articulation. 6. No other acute findings. Procedure: Patient seen evaluated in the preoperative holding area.? Consent reviewed and signed with patient.? Once again reviewed patient's MRI results as well as? planned surgical intervention.? Correct extremity marked.? Patient seen evaluated by anesthesia department received regional anesthesia.? Once ready for surgery was taken back to the operative suite.? Patient then subsequently underwent anesthesia per the anesthesia department was transported onto the OR table.? Patient was then placed into a lateral decubitus position with a beanbag and was appropriately secured to the bed.? All bony prominences well-padded.? Patient then had the right upper extremity was then prepped and draped in standard orthopedic fashion.? Patient received appropriate preoperative antibiotics.? Final timeout performed. The right upper extremity was then held in hanging from traction utilizing sterile technique.? Next started with standard diagnostic and surgical arthroscopy with posterior portal position introduced arthroscope into the glenohumeral joint.? Visualized the glenohumeral joint I then introduced a spinal needle within the rotator?cuff?interval to confirm appropriate anterior portal placement.? Once this was confirmed I then made my small incision and then introduced my arthroscopic shaver into the glenohumeral joint.? After thorough debridement was evident patient had intact bicep tendon with no unstable bicep anchor and no inflammatory response along the tendon. This was subsequently left alone. Next I evaluated the subscapularis tendon which was significant tearing of the subscapularis tendon as a result elected for subscapularis tendon repair. I subsequently established my anterior working portal making incision larger as well as a purple passport cannula. I then subsequently introduced an Arthrex scorpion loaded with a link suture. I subsequently had initial purchase of the majority of the upper third of the subscapularis. Prior to this I did utilize thermal wand to open up the rotator interval as well as to bluntly release any adhesions off the anterior aspect of the subscapularis tendon for appropriate isolated capture of just the subscapularis. Once again I subsequently luggage tag with suture and made 2 more additional passes to the subscapularis tendon had excellent fixation. I then subsequently loaded a Arthrex 4.75 swivel lock with the suture and then subsequently used my standard punch and then subsequently placed and had appropriate tension and secured the 4.75 swivel lock excess sutures were then subsequently cut and subscapularis pair was complete. ?Next there was significant labral tearing circumferential.? ? I then subsequently utilized a a arthroscopic shaver and thermal wand to perform a labral debridement.? This point time I then visualized the glenohumeral joint.? The glenohumeral joint was found to have grade 1-2? chondromalacia throughout.? Infrapatellar pouch was free of loose bodies from viewing the posterior portal.? Next a visualized the rotator?cuff?superiorly and there was found to be a tear in the supraspinatus tendon.? I utilized a spinal needle to leonides this location.?? This completed my work within the glenohumeral joint all fluid was suctioned free of the joint.? ?Next I reintroduced the arthroscope posteriorly.? And went to the subacromial space.? I established my lateral working portal at the site of which my spinal needle was marking of the rotator?cuff?tear.? Thermal wand was then introduced laterally and then I subsequently performed extensive bursectomy of the subacromial space.? Patient had a large anterior bone spur.? At this point time I proceeded with my AC joint resection thermal wand was used and track to the anterior edge of the acromion and then tracked all the way to the AC joint.? Once identified the AC joint this was very arthritic in nature.? Thermal wand was placed anteriorly to establish appropriate plane for AC joint resection.? Once appropriate margins and anterior inferior and anterior capsule was released I then introduced arthroscopic shaver and a bur and performed AC joint resection of both the acromion to cope plane at the AC joint and a distal clavicle resection was then performed totaling 1 cm in size and was confirmed.? This completed my AC joint resection and I then introduced the arthroscopic shaver laterally while continuing to view posteriorly.? I then performed an acromioplasty to complete my subacromial decompression prior to fixing the rotator?cuff?tear.? Next the arthroscopic shaver was then used previous spinal needle spot that is marked the small hole in the rotator?cuff?this was consistent with a small full-thickness tear.? Tear was medium in size requiring a single medial row and a single lateral row anchor repair. I made an accessory portal utilizing a spinal needle to have a man's angle directly perpendicular to the medial footprint. I subsequently prepped and decorticated the rotator cuff footprint with a ring curette as well as with arthroscopic shaver. I then subsequently punched and placed a 4.75 swivel lock loaded with 4 Arthrex suture tapes. These were subsequently left out of the accessory portal and then subsequently retrieved and passed for individual passes of the suture tape. These were then loaded into my lateral row anchor with a single 4.75 swivel lock. I cleared off the lateral aspect of the greater tuberosity and then subsequently placed by punch and then loaded the 475 swivel lock with the 4 rotator cuff suture tapes appropriately tensioned these with care not to over tension and then subsequently malleted the eyelid with appropriate tension maintained and then subsequently secured the 4.75 swivel lock with excellent purchase and fixation. Sutures were then cut with an arthroscopic suture cutter and subsequently evaluated the rotator?cuff?repair.??Repair?was found to be satisfactory shoulder was taken through range of motion and the?repair?moved as a unit with no evidence of loss of fixation. ?I then switched the arthroscope to the lateral portal to confirm this tension-free?repair.? I took the shoulder through range of motion and the rotator?cuff?repair?was stable and moved as a unit. ?Next I then introduced the arthroscopic shaver posteriorly to complete my subacromial decompression appropriate complaining all the way up to the lateral edge of the acromion.? This included excision of patient's bursa within the subacromial space underneath the AC joint. This completed the surgery.? All fluid was suctioned from the shoulder.? All instruments were removed.? The lateral incision was then closed with nylon stitches.? As well as the portal sites closed with portal nylon stitches.? Xeroform 4 x 4's ABD and tape was then applied to the right shoulder and was placed into a shoulder abduction pillow sling for rotator?cuff?repair.? Patient was then awakened from anesthesia and then taken back to PACU in stable condition.? Patient tolerated procedure without any issues. Disposition: Patient taken back in stable condition recovering well.? Dressings on in place clean dry and intact.? Will be nonweightbearing to the right upper extremity.? Follow rotator?cuff?repair?protocol.? Patient to follow-up with me in the office in 2 weeks.? Patient will receive appropriate discharge instruction as well as pain medication postoperatively.? All questions answered.? We will contact the office for any questions or concerns.
== END 2024-01-17 17:38 | disposition home or self-care (01) ==
PROVIDERS: Anesthesiology; PCP Internal Medicine; Visit Provider Student in an Organized Health Care Education/Training Program
PROC: (CPT 29805; principal; 2024-01-17 10:20)
PROC: 0RSG0ZZ Reposition Right Acromioclavicular Joint, Open Approach (ICD-10-PCS; CPT 29823; 2024-01-17 10:20)
PROC: (CPT 29827; 2024-01-17 10:20)
PROC: (CPT 29826; 2024-01-17 10:20)
DX: M25.811 Other specified joint disorders, right shoulder (principal); M19.011 Primary osteoarthritis, right shoulder; M67.411 Ganglion, right shoulder; S46.911A Strain of unspecified muscle, fascia and tendon at shoulder and upper arm level, right arm, initial encounter; I10 Essential (primary) hypertension
CPT/HCPCS: 29823; 29824; 29826; 29827; 80048; C1713 ×2; J0131; J0690; J1100; J1885; J2250; J2405; J2704; J2710; J2795; J3010; J3490; J7030

== ENCOUNTER 2024-02-21 12:48 | Outpatient (RCR) | payer OTHER, SELFPAY | END 2024-03-12 23:59 | disposition home or self-care (01) | LOC: SPT 12:48 | PROVIDERS: PCP Internal Medicine; Visit Provider Student in an Organized Health Care Education/Training Program | DX: Z98.890 Other specified postprocedural states (principal) | CPT/HCPCS: 97110; 97140; 97161 ==

== ENCOUNTER 2024-03-13 06:00 | Outpatient (RCR) | payer OTHER, SELFPAY | END 2024-04-12 23:59 | disposition home or self-care (01) | LOC: SPT 06:00 | PROVIDERS: PCP Internal Medicine; Visit Provider Student in an Organized Health Care Education/Training Program | DX: Z47.89 Encounter for other orthopedic aftercare (principal) | CPT/HCPCS: 97110; 97140 ==

== ENCOUNTER 2024-04-13 06:00 | Outpatient (RCR) | payer OTHER, SELFPAY | END 2024-05-02 23:59 | disposition home or self-care (01) | LOC: SPT 06:00 | PROVIDERS: PCP Internal Medicine; Visit Provider Student in an Organized Health Care Education/Training Program | DX: Z47.89 Encounter for other orthopedic aftercare (principal) | CPT/HCPCS: 97110 ==

== ENCOUNTER 2025-01-15 10:42 | Outpatient (CLI) | payer OTHER, SELFPAY ==
--- NOTE | 2025-01-15 10:44 | MM_ITS ---
WS: [id number] BILATERAL SCREENING DIGITAL TOMOSYNTHESIS MAMMOGRAM WITH CAD HISTORY: SCREENING COMPARISON: 08/10/2017, 06/28/2023 and 10/10/2018 Bilateral CC and MLO views with tomosynthesis and synthetic mammography submitted. Computer aided detection analyzed. Breast composition: There are scattered areas of fibroglandular density. No suspicious masses, microcalcifications or architectural distortion. Masses present within each breast central to the nipple. These masses have been previously described and stable since at least 08/10/2017. No new mass or enlarg ing mass. No suspicious grouping of calcifications. MM/MM scr tomosynthesis [id number] IMPRESSION: BI-RADS: 2 - Benign. FOLLOW UP: 1 Year Follow-up
== END 2025-01-15 10:43 | disposition home or self-care (01) ==
PROVIDERS: PCP Family Medicine; Visit Provider Family Medicine
DX: Z12.31 Encounter for screening mammogram for malignant neoplasm of breast (principal); R92.323 Mammographic fibroglandular density, bilateral breasts; N63.20 Unspecified lump in the left breast, unspecified quadrant; N63.10 Unspecified lump in the right breast, unspecified quadrant
CPT/HCPCS: 77063; 77067